=== PATIENT | male | born 1940 | race Caucasian/White ===

== ENCOUNTER → 2017-02-03 | Outpatient (CLI) | payer MEDICARE ==
[~2017-02-03] MED LIST: ACETAMINOPHEN325 MG PO; ADVIL200 M1 PO; ALBUTEROL; ALBUTEROL NEBULIZER; AZELASTINE HCL6 ML OP; BENADRYL ALLERG25 MG PO; BENAZEPRIL HCL5 M1 PO; CEFTRIAXONE2 GM IV; CIPRO PO; CLARITIN10 M2 PO; CLARITIN10 MG PO; COLACE PO; HEARTBURN RELIE10 MG PO; HYDROXYZINE HCL25 M1 PO; IBUPROFEN800 MG PO; INDAPAMIDE2.5 M1 PO; KEFLEX500 MG PO; KLONOPIN PO; KLONOPIN1 MG PO; LISINOPRIL10 MG PO; LORTAB 5/500 TA1 TA1 PO; MACRODANTIN PO; MULTIPLE VITAMI1 T11 PO; NORCO 7.5/325 T1 TAB PO; OXYGEN; PEPCID AC20 MG PO; PEPCID PO; POTASSIUM CHLO10 ME2 PO; PRAVASTATIN SOD20 MG PO; PROAIR HFA8.5 GM IH; PROAIR HFA8.5 GM INH; PROBIOTIC1 EAC1 PO; PULMICORT0.25 MG/2; PULMICORT0.25 MG/2 NEB; PULMICORT0.5 MG/2 M IH; PULMICORT180 MCG/A1 INH; PULMICORT200 MCG/AE INH; RAPAFLO8 MG PO; SILODOSIN; SINGULAIR PO; SPIRIVA18 MCG INH; SYSTANE 0.3-0.415 ML OP; ZOLOFT50 MG PO; [UNRECOGNIZED DRUG - OTHER]; [UNRECOGNIZED DRUG - OTHER] OP; [UNRECOGNIZED DRUG - OTHER] PO; [UNRECOGNIZED DRUG - OTHER] PO
--- NOTE | ~2017-02-03 | CR63 ---
[facility] A Service of [facility] / [facility] RADIOLOGY TEXT RESULTS PATIENT: MARY ALMANZA SR LOCATION: [facility] : 36 UNIT #: [id number] AGE: [address]: Malinda Abad MD SEX: M ORDER DR: [id number] [facility] [address] [place], [place] [address] [id number] O MR#: [id number] Acc #: [id number] NAME: MARY ALMANZA : 1940 SEX: M STUDY DATE/TIME: 02/03/2017 14:59 UNIT: [facility] ROOM: STUDY DESCRIPTION: CR Chest 2 View Attending Physician: Malinda Abad M.D. Referring Physician: Malinda Abad M.D. Ordering Physician: Malinda Abad M.D. Primary Care Physician: Mahendra Bell M.D. 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 Former smoker. Asthma. COMPARISON STUDIES PA and lateral views of the chest are compared with 12/26/[address] from 12/27/2011. FINDINGS Heart size is normal. Thoracic aorta appears intact. There is atherosclerotic disease. Granulomatous calcifications are noted in lymph nodes. Probable pulmonary staple line noted at the right base. The calcified pleural plaque noted on the left compatible with asbestos related pleural disease. No pneumothorax is seen. No acute infiltrates. Diffuse degenerative disease in the spine would suggest DISH. IMPRESSION No acute findings in the chest. Pleural plaques noted on the left compatible with asbestos related pleural disease. Postop changes right lung. Thoracic aorta is ectatic. Dictated by... Roby Bruce Jr., M.D. THIS IS AN ELECTRONICALLY VERIFIED REPORT Roby Bruce Jr., M.D. at 02/04/2017 3:50 PM JD/cristian TD: 02/04/2017 14:34 [facility] A Service of [facility] / [facility] RADIOLOGY TEXT RESULTS PATIENT: MARY ALMANZA SR LOCATION: [facility] #: [id number] : 36 UNIT #: [id number] AGE: [address]: Malinda Abad MD SEX: M ORDER DR: JOB #: [id number] MEDICAL IMAGING REPORT Page 1 of 1 COPY
== END | disposition home or self-care (01) ==
LOC: CRAD 14:33
DX: J44.9 Chronic obstructive pulmonary disease, unspecified (principal); J92.9 Pleural plaque without asbestos; I77.810 Thoracic aortic ectasia; Z98.890 Other specified postprocedural states
CPT/HCPCS: 71020